=== PATIENT | female | born 1960 | race Caucasian/White ===

== ENCOUNTER 2024-09-21 06:46 | Outpatient (CLI) | payer OTHER, SELFPAY ==
--- NOTE | ~2024-09-21 | CT_ITS ---
CT Scan of the Chest without Contrast: Clinical Indication: Lung cancer screening, nicotine dependence Technique: Contiguous sections were acquired throughout the chest without intravenous contrast. Dose reduction technique was used on this scan by utilizing automated exposure control and iterative recon struction technique. The dose-length product (DLP) was 76.88 mGy-cm. Findings: There is no evidence of any significant mediastinal, hilar or axillary lymphadenopathy. The mediastin al soft tissues appear normal. There is no evidence of pleural or pericardial effusion. There is focal right apical scarring. Moderate emphysema present in the lungs. Images through the upper abdomen reveal no abnormalities. Impression: Lung RADS 2: Benign appearance. 12 month follow-up screening CT advised. Reviewed, dictated and finalized at location . DOWN CHECKER Impression: Lung RADS 2: Benign appearance. 12 month follow-up screening CT advised.
== END 2024-09-21 06:47 | disposition home or self-care (01) ==
PROVIDERS: PCP Physician Assistant Medical; Visit Provider Internal Medicine Critical Care Medicine
DX: Z12.2 Encounter for screening for malignant neoplasm of respiratory organs (principal); Z87.891 Personal history of nicotine dependence
CPT/HCPCS: 71271; 94060; 94618; 94726; 94729

== ENCOUNTER 2024-11-08 01:18 | Day surgery (SDC) | payer OTHER, SELFPAY ==
[2024-10-19 13:37] VITALS: BMI 27.1
[2024-11-08 06:57] VITALS: BP 111/69; PULSE 99; RESP 17; TEMP 36.4; O2SAT 98
[2024-11-08] MEDS: LACTATED RINGERS 1,000 ML 150 ML IV CONT (07:10)
[2024-11-08 07:11] LABS: Glucose Point of Care 143 mg/dl (65-105)
--- NOTE | 2024-11-08 07:30 | P.PNAN_ITS ---
Anes - Initial Pre Proc Eval Procedure: Operation Date: 11/08/24 08:00 Proposed Procedures p Esophagogastroduodenoscopy&Screen Colon - mEeka Chin MD Date/Time: 11/08/24 07:30 Surgeon: Emeka Chin MD Pre Op Diagnosis: screening colon Patient Data Age: 64 Gender: F Height: 1.63 m Weight: 71.7 kg Last Vital Signs Temp 36.4 C L 11/08/24 06:57 Pulse 99 11/08/24 06:57 Resp 17 11/08/24 06:57 BP 111/69 11/08/24 06:57 Pulse Ox 98 11/08/24 06:57 O2 Del Method Room Air 11/08/24 06:57 Allergies Allergy/AdvReac Type Severity Reaction Status Date / Time nirmatrelvir (From Paxlovid) Allergy Intermediate throat Verified 11/08/24 06:55 felt like it was swelling ritonavir (From Paxlovid) Allergy Intermediate throat Verified 11/08/24 06:55 felt like it was swelling sulfur dioxide Allergy Rash Verified 11/08/24 06:55 Home Medications ?Medication ?Instructions ?Recorded ?Confirmed ?Type albuterol sulfate 90 mcg/actuation 1 puff inhalation Q4H PRN 02/08/24 10/19/24 History aerosol inhaler (ProAir HFA) shortness of breath or wheezing buspirone 15 mg tablet 15 mg PO BID 02/08/24 10/19/24 History nystatin 100,000 unit/gram topical 1 applic topical DAILY PRN other 02/08/24 10/19/24 History ointment tiotropium bromide 1.25 2 puff inhalation BID 02/08/24 10/19/24 History mcg/actuation mist for inhalation (Spiriva Respimat) topiramate 50 mg tablet 50 mg PO BID #180 tabs 02/08/24 10/19/24 Rx triamcinolone acetonide 0.1 % 1 applic topical BID PRN other 02/08/24 10/19/24 History topical cream Lactobacillus rhamnosus-Bifidobac. 1 cap PO .QD #30 caps 05/18/24 10/19/24 Rx animalis 3 billion cell capsule ([employer] wheat dextrin 5 gram/7.4 gram oral See Rx Instructions PO .QD #248 05/18/24 10/19/24 Rx powder (Benefiber Healthy Shape) grams zolpidem 10 mg tablet 10 mg PO QHS PRN insomnia #30 tabs 05/31/24 10/19/24 Rx metformin 500 mg tablet,extended 1,000 mg (2 x 500 mg) PO BID #180 07/03/24 11/08/24 Rx release 24 hr tabs omeprazole 40 mg capsule,delayed 40 mg PO BID #180 caps 08/07/24 10/19/24 Rx release ondansetron 4 mg disintegrating 4 mg PO Q8H PRN nausea and 08/16/24 10/19/24 Rx tablet vomiting #10 tabs atorvastatin 20 mg tablet 20 mg PO QHS #90 tabs 10/05/24 10/19/24 Rx mirtazapine 30 mg tablet (Remeron) 30 mg PO DAILY #90 tabs 10/05/24 10/19/24 Rx paroxetine HCl 40 mg tablet (Paxil) 40 mg PO DAILY #90 tabs 10/08/24 10/19/24 Rx rizatriptan 10 mg tablet See Rx Instructions PO .COMPLEX #7 10/12/24 10/19/24 Rx tabs hydrocodone 10 mg-acetaminophen 1 tablet PO Q4H PRN pain #180 tabs 10/19/24 11/08/24 Rx 325 mg tablet lorazepam 1 mg tablet 1 mg PO BID PRN anxiety #60 tabs 10/19/24 11/08/24 Rx Laboratory Tests 11/08/24 07:03 POC Capillary Glucose 143 H mg/dl (65-105) Patient hx anesthesia problems: none Family hx anesthesia problems: none Results Review: All pre-operative results and documents have been reviewed as part of the pre- operative evaluation. [facility] Past Medical History Medical History History of Bennett's esophagus Migraine Muscle spasm of back Foot pain Screening for colon cancer Lumbar spondylosis Insomnia Osteoporosis Headache GERD (gastroesophageal reflux disease) Diabetes COPD (chronic obstructive pulmonary disease) Arthritis Anxiety Surgical History Surgical History H/O: hysterectomy (~1999) History of appendectomy (~1984) Family History Family History Father Skin cancer Lung cancer Diabetes mellitus Hypertension Heart disease Mother Heart disease Other Diabetes mellitus Social History Social History Social History: 08/16/24 very confident with medical forms Smoking packs per day: 1 Smoking cigarettes per day: 20.0 Smoking status: Current every day smoker Tobacco type: cigarettes Alcohol intake: never Substance use: never Substance use type: does not use Do You Feel Safe in your Home?: Yes Lack of Transportation: No Lack of Food: Never True Current Housing: I Have Housing Concerned About Future Housing: No Difficulty Paying Gas/Electric Bills: No Difficulty Paying for Meds: No Currently Unemployed: No Education: Decline to Answer Difficulty w/ Childcare or Family Care: No Living arrangements: with family Occupation/Education: retired Agree to blood products: Yes Anes - Eval Final PreProcedure Day of Procedure 11/08/24 07:30 Patient weight: overweight Heart: regular rate and rhythm Lungs: clear to auscultation Airway: Mallampati scale class II and other (dentures) Neurological: alert and oriented Last oral intake: >/= 8 hours ASA classification: III Emergent: no Anesthetic plan: proceed Anesthesia type and monitoring: general GIVS and standard monitoring Results Review: All pre-operative results and documents have been reviewed as part of the pre- operative evaluation. Informed Consent: The patient's anesthetic plan and its attendant risks and benefits were discussed with the patient/family/POA. Questions were solicited and answers provided to the satisfaction of the patient/family/POA.
--- NOTE | 2024-11-08 07:46 | P.HP_ITS ---
History of Present Illness History of Present Illness Consent: Risks, benefits, and alternatives have been discussed and questions answered. Patient agrees to proceed with procedure. Chief complaint: screening colon Narrative: Yolie Dutton is a 64 year old female with gerd on omeprazole, had egd and colonoscopy 5 years ago, h/o chronic diarrhea for years. Review of Systems Review of Systems: All systems reviewed & are unremarkable except as noted in HPI and below PMFSH Past Medical History Medical History History of Bennett's esophagus Migraine Muscle spasm of back Foot pain Screening for colon cancer Lumbar spondylosis Insomnia Osteoporosis Headache GERD (gastroesophageal reflux disease) Diabetes COPD (chronic obstructive pulmonary disease) Arthritis Anxiety Surgical History Surgical History H/O: hysterectomy (~1999) History of appendectomy (~1984) Family History Family History Father Skin cancer Lung cancer Diabetes mellitus Hypertension Heart disease Mother Heart disease Other Diabetes mellitus Social History Social History Social History: 08/16/24 very confident with medical forms Smoking packs per day: 1 Smoking cigarettes per day: 20.0 Smoking status: Current every day smoker Tobacco type: cigarettes Alcohol intake: never Substance use: never Substance use type: does not use Do You Feel Safe in your Home?: Yes Lack of Transportation: No Lack of Food: Never True Current Housing: I Have Housing Concerned About Future Housing: No Difficulty Paying Gas/Electric Bills: No Difficulty Paying for Meds: No Currently Unemployed: No Education: Decline to Answer Difficulty w/ Childcare or Family Care: No Living arrangements: with family Occupation/Education: retired Agree to blood products: Yes Meds Home Medications and Allergies Home Medications ?Medication ?Instructions ?Recorded ?Confirmed ?Type albuterol sulfate 90 mcg/actuation 1 puff inhalation Q4H PRN 02/08/24 10/19/24 History aerosol inhaler (ProAir HFA) shortness of breath or wheezing buspirone 15 mg tablet 15 mg PO BID 02/08/24 10/19/24 History nystatin 100,000 unit/gram topical 1 applic topical DAILY PRN other 02/08/24 10/19/24 History ointment tiotropium bromide 1.25 2 puff inhalation BID 02/08/24 10/19/24 History mcg/actuation mist for inhalation (Spiriva Respimat) topiramate 50 mg tablet 50 mg PO BID #180 tabs 02/08/24 10/19/24 Rx triamcinolone acetonide 0.1 % 1 applic topical BID PRN other 02/08/24 10/19/24 History topical cream Lactobacillus rhamnosus-Bifidobac. 1 cap PO .QD #30 caps 05/18/24 10/19/24 Rx animalis 3 billion cell capsule ([employer]) wheat dextrin 5 gram/7.4 gram oral See Rx Instructions PO .QD #248 05/18/24 10/19/24 Rx powder (Benefiber Healthy Shape) grams zolpidem 10 mg tablet 10 mg PO QHS PRN insomnia #30 tabs 05/31/24 10/19/24 Rx metformin 500 mg tablet,extended 1,000 mg (2 x 500 mg) PO BID #180 07/03/24 11/08/24 Rx release 24 hr tabs omeprazole 40 mg capsule,delayed 40 mg PO BID #180 caps 08/07/24 10/19/24 Rx release ondansetron 4 mg disintegrating 4 mg PO Q8H PRN nausea and 08/16/24 10/19/24 Rx tablet vomiting #10 tabs atorvastatin 20 mg tablet 20 mg PO QHS #90 tabs 10/05/24 10/19/24 Rx mirtazapine 30 mg tablet (Remeron) 30 mg PO DAILY #90 tabs 10/05/24 10/19/24 Rx paroxetine HCl 40 mg tablet (Paxil) 40 mg PO DAILY #90 tabs 10/08/24 10/19/24 Rx rizatriptan 10 mg tablet See Rx Instructions PO .COMPLEX #7 10/12/24 10/19/24 Rx tabs hydrocodone 10 mg-acetaminophen 1 tablet PO Q4H PRN pain #180 tabs 10/19/24 11/08/24 Rx 325 mg tablet lorazepam 1 mg tablet 1 mg PO BID PRN anxiety #60 tabs 10/19/24 11/08/24 Rx Allergies Allergy/AdvReac Type Severity Reaction Status Date / Time nirmatrelvir (From Johnny) Allergy Intermediate throat Verified 11/08/24 06:55 felt like it was swelling ritonavir (From Paxlovid) Allergy Intermediate throat Verified 11/08/24 06:55 felt like it was swelling sulfur dioxide Allergy Rash Verified 11/08/24 06:55 Vital Signs Vital Signs - 24 hr 11/08/24 06:57 Temperature 97.5 F L Pulse Rate 99 Respiratory Rate 17 Blood Pressure 111/69 Pulse Oximetry 98 Oxygen Delivery Room Air Exam Const: General: comfortable and no acute distress HENMT: Face/Nose/Sinus: Normal nares present Eyes: General: appearance normal, both eyes and all related structures Neck: Neck: no JVD Resp: Auscultation: clear to auscultation bilaterally Cardio: Rate: regular rate Rhythm: regular rhythm GI: Inspection: non-distended GI Palp: Yes Soft to palpation Skin: General skin exam: normal color Neuro: General: gait normal Speech: normal speech Extrem: General: normal to inspection Psych: Mental Status: mental status grossly normal Assessment and Plan Assessment and plan (1) GERD (gastroesophageal reflux disease): Code(s): K21.9 - Gastro-esophageal reflux disease without esophagitis Status: Acute Assessment and Plan: on ppi egd (2) Postprandial diarrhea: Code(s): K52.9 - Noninfective gastroenteritis and colitis, unspecified Status: Acute Assessment and Plan: colonoscopy (3) Screening for colon cancer: Code(s): Z12.11 - Encounter for screening for malignant neoplasm of colon Status: Acute
--- NOTE | 2024-11-08 08:01 | SUR.OPER ---
EGD end 0755 Colonoscopy start 08
[2024-11-08 08:16] VITALS: BP 110/74; PULSE 93; RESP 18; O2SAT 99
[2024-11-08 08:26] VITALS: BP 120/68; PULSE 84; RESP 22; O2SAT 99
[2024-11-08 08:36] VITALS: BP 130/76; PULSE 81; RESP 20; O2SAT 99
== END 2024-11-08 08:55 | disposition home or self-care (01) ==
PROVIDERS: PCP Physician Assistant Medical; Visit Provider Internal Medicine Gastroenterology
PROC: 0DJ08ZZ Inspection of Upper Intestinal Tract, Via Natural or Artificial Opening Endoscopic (ICD-10-PCS; CPT 45378; principal; 2024-11-08 08:00)
DX: Z12.11 Encounter for screening for malignant neoplasm of colon (principal); K57.30 Diverticulosis of large intestine without perforation or abscess without bleeding; K21.00 Gastro-esophageal reflux disease with esophagitis, without bleeding; K29.80 Duodenitis without bleeding; K52.9 Noninfective gastroenteritis and colitis, unspecified; E11.9 Type 2 diabetes mellitus without complications; M43.06 Spondylolysis, lumbar region; G47.00 Insomnia, unspecified; M81.0 Age-related osteoporosis without current pathological fracture; J44.9 Chronic obstructive pulmonary disease, unspecified; F41.9 Anxiety disorder, unspecified; M19.90 Unspecified osteoarthritis, unspecified site; F17.210 Nicotine dependence, cigarettes, uncomplicated; Z79.51 Long term (current) use of inhaled steroids; Z79.84 Long term (current) use of oral hypoglycemic drugs; Z79.891 Long term (current) use of opiate analgesic; Z98.890 Other specified postprocedural states; Z87.19 Personal history of other diseases of the digestive system; Z84.0 Family history of diseases of the skin and subcutaneous tissue; Z80.1 Family history of malignant neoplasm of trachea, bronchus and lung; Z82.49 Family history of ischemic heart disease and other diseases of the circulatory system
CPT/HCPCS: 43239; G0105; 82948; 88305; J2003; J2704; J7120

== ENCOUNTER 2025-06-04 12:30 | Outpatient (RCR) | payer OTHER, SELFPAY ==
--- NOTE | 2025-04-25 09:54 | OPREHPOC ---
Outpatient Therapy Plan of Care This is a Multidisciplinary Plan of Care that may contain components documented by all disciplines (PT, OT, and ST.) PT Problem 1 PT Problem #1 Knowledge Deficit PT Goal 1 Goal / Goal Update Pt will be independent in HEP Pt will verbalize understanding of diagnosis and prognosis Target Visit 10 PT Problem 2 PT Problem #2 Pain PT Goal 1 Goal / Goal Update Pt will report lowest pain rating at 0/10 to show improvement in overall discomfort Target Visit 10 PT Goal 2 Goal / Goal Update Pt will report greatest pain level at 6/10 or less to improve ADLs and activities Target Visit 20 PT Problem 3 PT Problem #3 Impaired Strength PT Goal 1 Goal / Goal Update Pt will demonstrate 3/5 strength BLEs for improved lumbopelvic stability Target Visit 10 PT Goal 2 Goal / Goal Update Pt will demonstrate 3/5 strength BLEs for improved lumbopelvic stability Target Visit 20 PT Problem 4 PT Problem #4 Impaired Range of Motion PT Goal 1 Goal / Goal Update Pt will demonstrate lumbar rotation 20 degrees R/L each Target Visit 10 PT Goal 2 Goal / Goal Update Pt will demonstrate improved thoracic mobility to offload musculature and reduce pain Target Visit 20
--- NOTE | 2025-04-25 09:56 | PTOPEVAL1 ---
Assessment and note entered by Cheri Bird, PT Evaluation Information Assessment Status Evaluation Diagnosis low back pain unspec ICD-10 Condition Codes (PT) Pain in Thoracic Spine M54.6,Pain in low back M54. 50,Weakness R53.1 Other ICD-10 Condition Codes ( scoliosis, abnormal postures PT) Onset chronic Subjective Information Pt reports she has done therapy in the past and it did absolutely nothing. States she knows this is not going to help either and just needs to complete therapy for the MRI Has been having chronic back pain ~15 years. Taking vicoden for this for the last. Has been on muscle relaxers and other medications for quite some time at least 5 years. Reports takes 4-6 a day. States sometimes has to take 2 at a time. Reports there are days though only has to take one at a time. States once she does anything is shot for the rest of the day, something as little as holding 4 lb chihuahua. Thinks had an MRI years ago. Has not been referred to pain management. Has not tried back bracing. will use heavy duty massager and this feels good. Reports she can't hardly do anything rates about 5 minutes of activity before sitting. Cannot stand at a sink to do dishes, tries to cook and by the time I'm just screaming it hurts so bad is in such a oliver to sit down. Reports no pain or tingling down the legs Went shopping yesterday about 20 minutes using a push cart. Would go to the cart and lean on it. went first clothes shopping then went to grocery store but was unable to finish shopping. Only thing that really relieves pain is laying down. Reports no traumatic incident to start back pain. 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 States would get to shivering, and be in tears about 10 years ago. Reported Pain Level Pain Score 2: Self Report Assessment PT Clinical Summary Pt presents with complaints of chronic back pain both in the lumbar and thoracic spine. She has attended therapy in the past without success, and initially verbalizes her opinion that she knows therapy will not work, that she is just performing therapy for MRI requirements. After evaluation, educated patient on therapy findings, as well as interventions intended and goals related to reducing pain and improving function though not likely to resolve pain 100%. Pt appears more open to participating fully in therapy while meeting requirements for insurance. Evaluation shows severe thoracic kyphosis with decreased thoracic mobility, decreased lumbar lordosis with decreased ROM, possible pelvic upslip versus leg length discrepancy, multiple areas of increased muscle tone and tenderness, and severely decreased strength in the lumbopelvic stabilizer musculature . Pt will greatly benefit from physical therapy to educate her in functional activities, promote independent thinking for modifications of activies for reduced pain, manual therapy to reduce muscle tonicity and pain, and strengthening among other interventions to reduce pain and improve overall function. Plan of Care Interventions Electrical Stimulation,Hot Pack/Cold Pack,Manual Lymph Drainage,Manual Therapy,Mechanical Traction, Neuro Re-education,Patient/Caregiver Education, Therapeutic Activities,Therapeutic Exercise,Self- Care/Home Management,Ultrasound,Other Other Interventions Bracing, taping, TENS unit PT Services Indicated Yes Treatment Frequency and 1-2x weekly x 20 visits Duration These treatments will address the objective and functional deficits as defined above. The patient will be advanced safely and appropriately in order for the patient to progress towards his/her prior level of function. Additional exercises will be introduced and as well as a comprehensive home exercise program upon discharge, if needed, ?to ensure carryover of functional gains achieved in the clinic. This treatment plan has been reviewed and agreement upon by the patient.
--- NOTE | 2025-05-14 16:54 | PCPTNOTE ---
Pt cancelled today's physical therapy appointment. Pt left VM with no reason for cancelling.
--- NOTE | 2025-05-21 13:25 | PCPTNOTE ---
Pt called to cancel her appointment as she has to take her dog to the vet.
--- NOTE | 2025-05-29 17:14 | PTOPPROG ---
Assessment and note entered by Cheri Bird, PT Evaluation Information Assessment Status Progress Diagnosis low back pain unspec ICD-10 Condition Codes (PT) Pain in Thoracic Spine M54.6,Pain in low back M54. 50,Weakness R53.1 Other ICD-10 Condition Codes ( scoliosis, abnormal postures PT) Onset chronic Subjective Information Pt was here a week ago and had to cancel last appt due to taking the dog to the vet. Pt reports tried to do the most of her exercises. Got a little sore doing them, doesn't know if was doing too much and to many. Is also assisting her due to his hip pain. Pt reports is hurting more since starting therapy. States is feeling muscle cramps or sierra horses in her muscles usually when she is doing the exercises or moving later will feel it. Reports her neck muscles are currently bothering her. States she knows it's from the exercise she is doing. Reports is still difficult standing and making food in the kitchen. States took lots of sitting breaks while cooking zucchini bread and pie for an event States had to sit every 10 minutes. Reports was able to get the shrinking hose advised by therapist. Hasn't used it yet. Pt reports not feeling much improvement overall Assessment PT Clinical Summary Pt has attended therapy 7 of 10 scheduled therapy sessions thus far. Increased time through sessions spent on educating patient on using other resources available to offload her musculature with her activities such as improved gardening equipment and positioning when preparing large meals. She continues to show a kyphotic posture though her pelvis appears aligned today which is improved. She demonstrates less tenderness with palpation, improved strength in the gluteal area, reduced pain reports in highest and lowest pain ratings, and reduced perceived disability with the Oswestry outcome measures. She reports her exercises cause increased pain though this appears to be muscle fatigue in nature based on discussion. Her pain perception may be skewed as is common with chronic pain processing. Pt also voices additional factors outside of therapy in the pscho-social realm likely effecting perception of progress. Pt will benefit from continued therapy to continue education and problem solving functional activities to reduce her pain, continue progressing strength and endurance of postural muscles, improve mobility and ROM sherrell of the thoracic spine, and improve overall functional independence and quality of life. Plan of Care Interventions Electrical Stimulation,Hot Pack/Cold Pack,Manual Lymph Drainage,Manual Therapy,Mechanical Traction, Neuro Re-education,Patient/Caregiver Education, Therapeutic Activities,Therapeutic Exercise,Self- Care/Home Management,Ultrasound,Other Other Interventions Bracing, taping, TENS unit PT Services Indicated Yes Treatment Frequency and 1x weekly x 10 visits due to financial burden of Duration 2x weekly visits These treatments will address the objective and functional deficits as defined above. The patient will be advanced safely and appropriately in order for the patient to progress towards his/her prior level of function. Additional exercises will be introduced and as well as a comprehensive home exercise program upon discharge, if needed, ?to ensure carryover of functional gains achieved in the clinic. This treatment plan has been reviewed and agreement upon by the patient.
--- NOTE | 2025-06-11 15:23 | PCPTNOTE ---
Pt called front end web designer to cancel her physical therapy appointment today due to having plumbing issues and her sink flooding.
--- NOTE | 2025-06-17 09:59 | PTOPDC ---
Assessment and note entered by Cheri Bird, PT Evaluation Information Assessment Status Discharge - Pt Not Present Diagnosis low back pain unspec ICD-10 Condition Codes (PT) Pain in Thoracic Spine M54.6,Pain in low back M54. 50,Weakness R53.1 Other ICD-10 Condition Codes ( scoliosis, abnormal postures PT) Onset chronic Assessment PT Clinical Summary Pt attended 7 of her first 10 visits, and demonstrated improvement in her pain reports and with her subjective Oswestry functional outcome measure. At that time she asked to reduce her frequency to 1x weekly due to financial concerns with her co-pay. We decreased frequency and increased her length of treatment session to balance this as well as encouraged home exercises consistently due to inability to attend. She only attended one session after reeval for a total of 8 visits. She called and requested discharge due to being to busy at the moment to attend therapy. Thus patient is being discharged per request. She will be able to return to therapy at any point in time with a new prescription from her PCP. Plan of Care PT Services Indicated No
== END 2025-06-17 10:08 | disposition home or self-care (01) ==
LOC: ANHHIPT 12:30
PROVIDERS: PCP Physician Assistant Medical; Visit Provider Physician Assistant Medical
DX: M25.531 Pain in right wrist (principal); M25.532 Pain in left wrist; M54.50 Low back pain, unspecified
CPT/HCPCS: 97014; 97110; 97140; 97162; 97530; 97750; G0283

== ENCOUNTER 2025-08-09 05:19 | Outpatient (CLI) | payer OTHER, SELFPAY ==
--- NOTE | 2025-07-24 11:50 | SUR.PREOP ---
Spoke with patient in regards to givens capsule endoscopy. Will send instructions by email. Patient does not have any questions at this time.
--- NOTE | 2025-08-09 07:05 | SUR.OPER ---
Patient brought to GI Lab. Instructions for patient undergoing Capsule Endoscopy reviewed with patient. Consent form signed. Sensor array applied to patient's abdomen and connected to recorded. Patient swallowed capsule with 16ozs of water infused with Simethicone. Patient instructed they may have clear liquids at 0830 this AM and eat or drink at 1030 this AM. Patient instructed to return to GI Lab at 1500 this afternoon for removal of recording device and to call [phone] or to return to the hospital if any nausea and vomiting or abdominal pain is experienced.
--- NOTE | 2025-08-09 14:58 | SUR.OPER ---
Patient returned to the GI Lab at 1455 for recorder box removal. Patient voiced no complaints. States they have understanding of instructions. Patient left ambulatory.
== END 2025-08-09 05:20 | disposition home or self-care (01) ==
PROVIDERS: PCP Physician Assistant Medical; Referring Provider Nurse Practitioner; Visit Provider Internal Medicine Gastroenterology
PROC: (CPT 91110; principal; 2025-08-09 07:00)
DX: D50.9 Iron deficiency anemia, unspecified (principal)
CPT/HCPCS: 91110

== ENCOUNTER 2025-09-23 09:29 | Outpatient (CLI) | payer OTHER, SELFPAY ==
--- NOTE | ~2025-09-23 | CT_ITS ---
EXAMINATION:CT lung screening DATE: 09/23/2025 09:55 INDICATION: 50 pack year history of smoking. TECHNIQUE: Computed tomography (CT) of the chest was performed without intravenous contrast. Automated exposure control and iterative reconstruction technique were employed. The dose-length product (DLP) was 90.96 mGy-cm. COMPARISON: CT lung cancer screening study dated 09/21/2024. FINDINGS: Significant waters acinar emphysematous changes of upper and mid lung zones. No solid pulmonary mass. Stable calcified lymph nodes in the mediastinum. No evidence of effusion. Significant coronary artery calcification of left anterior descending and right coronary arteries. IMPRESSION: 1. . Emphysematous changes of upper and mid lung zones. Stable calcified mediastinal lymph node. Continue annual low-dose screening. Lung RADS category 2 2. Multivessel coronary artery calcifications as mentioned above. Reviewed, dictated and finalized at location T. ESS ENGINEER IMPRESSION: 1. . Emphysematous changes of upper and mid lung zones. Stable calcified medias tinal lymph node. Continue annual low-dose screening. Lung RADS category 2 2. Multivessel coronary artery calcifications as mentioned above.
--- OUTSIDE RECORDS SUMMARY | 2025-09-23 10:38 | XMS_ITS | Clinical Summary ---
Author Organization [facility] Address [facility] [place] [address] Care Team Providers Care Heat Seal Operator Name Role Phone Mallory Sepulveda Primary Care Provider [phone] Allergies Active Allergy Reactions Criticality Noted Date Comments Latex Hives High 08/17/2023 Sulfa Antibiotics Hives Medium 08/17/2023 Medications metFORMIN ER, MOD, (GLUMETZA) 500 MG TABLET SR 24 HR 24 hr tablet Take 1 tablet (500 mg total) by mouth nightly at bedtime. Active atorvastatin (LIPITOR) 20 MG tablet Take 1 tablet (20 mg total) by mouth nightly at bedtime. Active busPIRone (BUSPAR) 15 MG tablet Take 1 tablet (15 mg total) by mouth 2 (two) times daily. Active PARoxetine (PAXIL) 40 MG tablet Take 1 tablet (40 mg total) by mouth every morning. Active omeprazole (PRILOSEC) 40 MG capsule Take 1 capsule (40 mg total) by mouth daily. Active mirtazapine (REMERON) 45 MG tablet Take 1 tablet (45 mg total) by mouth daily. Active Encounters Date Type Department Care Team Description 07/30/2025 12:49 PM CDT - 07/30/2025 11:59 PM CDT Hospital Encounter [facility] [address] [place] [address] Mallory Sepulveda PA Discharge Disposition: Home or Self Care (Routine Discharge) 07/30/2025 Travel 07/26/2025 1:30 PM CDT - 07/26/2025 11:59 PM CDT [place] [address] [place] [address] June Rogel APNP Discharge Disposition: Home or Self Care (Routine Discharge) 07/26/2025 Travel 06/24/2025 7:30 AM CDT - 06/24/2025 8:04 AM CDT Surgery [facility] [address] [place] [address] Charlie Esteves MD CATARACT REMOVAL WITH IOL IMPLANT 06/24/2025 7:30 AM CDT Anesthesia Event [facility] [address] [place] [address] Lorna Verde CRNA Rani, Swaroop, MD 06/24/2025 6:31 AM CDT - 06/24/2025 8:04 AM CDT Hospital Encounter [facility] [address] [place] [address] Charlie Esteves MD Discharge Disposition: Home or Self Care (Routine Discharge) 06/24/2025 Travel from Last 3 Months Family History Medical History Relation Comments Breast Cancer Sister HALF SISTER Relation Status Comments Sister Social History Tobacco Use Types Packs/Day Years Used Date Smoking Tobacco: Every Day Cigarettes Smokeless Tobacco: Never Tobacco Cessation:Ready to Q uit: Not Asked; Counseling Given: Not Answered Alcohol Use Standard Drinks/Week Comments Never 0 (1 standard drink = 0.6 oz pur e alcohol) Comments No Sex and Gender Information Value Date Recorded Sex Assigned at Not on file Legal Sex Female 8:04 PM CDT Gender Identity Not on file Sexual Orientation Not on file Last Filed Vital Signs Vital Sign Reading Time Taken Comments Blood Pressure 125/60 06/24/2025 7:53 AM CDT Pulse 82 06/24/2025 7:53 AM CDT Temperature 36.8 C (98.2 F) 06/24/2025 6:43 AM CDT Respiratory Rate 16 06/24/2025 7:53 AM CDT Oxygen Saturation 97% 06/24/2025 7:53 AM CDT Inhaled Oxygen Concentration - - Weight 70.3 kg (155 lb) 06/24/2025 6:43 AM CDT Height 162.6 cm (5' 4) 06/24/2025 6:43 AM CDT Body Mass Index 26.61 06/24/2025 6:43 AM CDT Plan of Treatment Health Maintenance Due Date Last Done Comments Colorectal Cancer Screening Colonoscopy (10 Years) 1960 Zoster Vaccines (1 of 2) 2008 Annual Medicare Wellness Visit 2023 Dexa Scan (General) 2023 COVID-19 Vaccine ( - season) 2025 03/20/2022, 08/19/2021, 01/19/2021, Additional history exists Influenza Adult (#1) 2025 06/27/2023, 09/03/2022, 07/07/2021, Additional history exists DTaP, Tdap and Td Vaccines (2 - Td or Tdap) 04/22/2026 04/22/2016 Mammogram Screening 07/30/2027 07/30/2025, 06/09/2021, 09/05/2019 RSV Immunization or 60+ Years (1 - 1-dose 75+ series) 2033 Colorectal Cancer Screening FIT/FOBT (1 Year) Discontinued 07/04/2019 Hepatitis C Completed 08/13/2019 Pneumococcal Vaccine: 50+ Years Completed 06/27/2023, 04/22/2016 Hepatitis A Vaccines Aged Out No long er eligible based on patient's age to complete this topic Meningococcal B Vaccine Aged Out No l onger eligible based on patient's age to complete this topic Meningococcal Vaccine Aged Out No cindy morgan eligible based on patient's age to complete this topic RSV Immunizations Under 20 Months Aged Out No longer eligible based on patient's age to complete this topic Medical Devices Implanted Type Area Service Delivery Analyst Device Identifier Shelf Expiration Date Model / Serial / Lot Tecnis 1-Piece Iol With Tecnis Simplicity Delivery System Implanted:Qty: 1 on 06/24/2025 by Charlie Esteves MD at [facility] Lens Left: Eye [employer] [id number] 03/29/2028 / [id number] / Procedures Procedure Name Priority Date/Time Associated Diagnosis Comments MG SCREENING W LUIS YONAS DIGI Routine 07/30/2025 1:46 PM CDT Encounter for screening mammogram for malignant neoplasm of breast CT ABD+PEL W CON Routine 07/26/2025 2:21 PM CDT Iron deficiency anemia, unspecified Noninfective gastroenteritis and colitis, unspecified CREATININE W/GFR Routine 07/26/2025 1:53 PM CDT REMV CATARACT EXTRACAP,INSERT LENS 06/24/2025 7:29 AM CDT H25.12 Case Notes C POCT GLUCOSE - DOCKED DEVICE Routine 06/24/2025 7:00 AM CDT HEPATITIS C ANTIBODY Routine 08/13/2019 10:56 AM CDT Abdominal pain, generalized Diarrhea of presumed infectious origin OCCULT BLOOD, FECES Routine 07/04/2019 9:48 AM CDT Diarrhea of presumed infectious origin Loss of weight from Last 3 Months or Most Recently Relevant to Health Maintenance Results * MG SCREENING W LUIS YONAS DIGI (07/30/2025 1:46 PM CDT) Anatomical Region Laterality Modality Breast Bilateral Mammography 08/01/2025 5:20 PM CDT Impressions 08/01/2025 5:22 PM CDT ===== IMPRESSION: ===== 1. Stable mammographic appearance with no new findings to suggest malignancy in either breast. Assessment: ACR BI-RADS 1 - NEGATIVE Recommendation: 1:Routine Screening Bilateral Comments: Ordered By: MALLORY SEPULVEDA Interpreted By: Gill Pham, 08/01/2025 5:20 PM Narrative 08/01/2025 5:22 PM CDT [facility] [address] [place] [address] EXAMINATION: Digital bilateral screening mammogram with 3-D tomosynthesis EXAM DATE/TIME: 07/30/2025 12:56 PM REASON FOR EXAM: Encounter for screening mammogram for malignant neoplasm of breast Breast carcinoma in half sister at age 40 COMPARISON: 09/05/2019. 06/09/2021 Technique: Digital screening mammography of both breasts was performed in addition to 3-D Tomosynthesis technique. This study was read with the assistance of a computer-aided detection system. Tissue density: There are scattered areas of fibroglandular density. Findings: There is no new focal asymmetry, dominant mass lesion, area of skin thickening, or cluster of suspicious appearing calcifications in either breast to suggest malignancy. us Mallory YBARRA MAMMO Final Result * CT ABD+PEL W CON (07/26/2025 2:21 PM CDT) Anatomical Region Laterality Modality Abdomen Computed Tomogra phy 07/29/2025 7:45 AM CDT Impressions 07/29/2025 7:50 AM CDT Impression: Diverticulosis of the sigmoid colon without evidence for diverticulitis. Referred By: JUNE ROGEL Interpreted By: Emeterio Naranjo MD, 07/29/2025 7:45 AM Narrative 07/29/2025 7:[place] [address] Examination: CT ABD+PEL W CON Exam time: 07/26/2025 1:38 PM Indication: Iron deficiency anemia. Blood in the stool for one month. Comparison:CT abdomen and pelvis 07/12/2007 Technique: IV contrast: 80 mL Isovue 370. Right antecubital fossa Oral contrast: None Technical comments: Standard technique. Dose reduction: This CT exam was performed using one or more of the following dose reduction techniques: Automated exposure control, adjustment of the mA and/or kV according to patient size, and/or use of iterative reconstruction technique. Findings: There is mild dependent atelectasis. The liver, gallbladder, spleen, pancreas, adrenal glands, and kidneys are unremarkable. There is no ureteral calculus. There is no calculus in the urinary bladder. There is atherosclerosis of the abdominal aorta without aneurysm. There is diverticulosis of the sigmoid colon without evidence for diverticulitis. No bowel obstruction or free intraperitoneal air. Hysterectomy. There is no lymphadenopathy. No acute osseous abnormality. Procedure Note Emeterio Naranjo MD - 07/29/2025 [facility] [address] [place] [address] Examination: CT ABD+PEL W CON Exam time: 07/26/2025 1:38 PM Indication: Iron deficiency anemia. Blood in the stool for one month. Comparison:CT abdomen and pelvis 07/12/2007 Technique: IV contrast: 80 mL Isovue 370. Right antecubital fossa Oral contrast: None Technical comments: Standard technique. Dose reduction: This CT exam was performed using one or more of thefollowing dose reduction techniques: Automated exposure control,adjustment of the mA and/or kV according to patient size, and/or use ofiterative reconstruction technique. Findings: There is mild dependent atelectasis. The liver, gallbladder,spleen, pancreas, adrenal glands, and kidneys are unremarkable. There isno ureteral calculus. There is no calculus in the urinary bladder. Thereis atherosclerosis of the abdominal aorta without aneurysm. There isdiverticulosis of the sigmoid colon without evidence for diverticulitis.No bowel obstruction or free intraperitoneal air. Hysterectomy. There isno lymphadenopathy. No acute osseous abnormality. Impression: Diverticulosis of the sigmoid colon without evidence fordiverticulitis. Referred By: JUNE ROGEL Interpreted By: Emeterio Naranjo MD, 07/29/2025 7:45 AM us June Rogel AP CT Final Result * (ABNORMAL) CREATININE W/GFR (07/26/2025 1:53 PM CDT) CREATININE WHOLE BLOOD 0.8 0.6 - 1.3 mg/dL 07/26/2025 2:05 PM CDT [facility] GFR ESTIMATE 81(L) >90 ml/min/1.7 3 m2 07/26/2025 2:05 PM CDT [facility] 07/26/2025 1:53 PM CDT June NICKERSON POINT OF CARE TEST ORDERABLE S Final Result Performing Organization Address City/[facility]/ZIP Co de Phone Number [facility] [address] [place] [address], [place] [phone] * (ABNORMAL) POCT glucose (06/24/2025 7:00 AM CDT) [facility] GLUCOSE POC 149(H) 70 - 110 mg/dL 06/24/2025 7:03 AM CDT [facility] 06/24/2025 7:00 AM CDT Charlie Esteves MD POCT ORDERABLES - DEVICE Danuta l Result Performing Organization Address [facility] Co de Phone Number [facility] [address] [place] [address], [place] [phone] * HEPATITIS C ANTIBODY (08/13/2019 10:56 AM CDT) [facility] HEPATITIS C AB NON-REACTI VE NON-REACTI VE 08/14/2019 4:54 AM CDT [facility] 08/13/2019 10:5 6 AM CDT Hira Tello MD LABORATORY Final Result Performing Organization Address City/[facility]/ZIP Co de Phone Number [facility] [address] [place] [address], [place] [phone] * OCCULT BLOOD, FECES (07/04/2019 9:48 AM CDT) Pathologist [facility] OCCULT BLOOD FECAL NEGATIVE NEGATIVE 07/04/2019 10:13 AM CDT [facility] STOOL SPECIMEN / Unknown 07/04/2019 9:48 AM CDT Hira Tello MD BODY FLUIDS AND STOOLS ORDERABL ES Final Result [facility] [address] [place] [address], from Last 3 Months or Most Recently Relevant to Health Maintenance Insurance [employer] Care Teams Heat Seal Operator Relationship Specialty Start Date End Date Mallory Sepulveda PA [address] [place] [address] PCP - General PHYSICIAN AGITATOR OPERATOR 06/07/25
--- OUTSIDE RECORDS SUMMARY | 2025-09-23 10:38 | XMS_ITS | Clinical Summary ---
Author Organization [facility] Address [address] [place] [id number] Care Team Providers Care Naphthalene Still Operator Name Role Phone Ramin Morgan MD Primary Care Provider [phone] Allergies Active Allergy Reactions Criticality Noted Date Comments Adhesive Tape-Silicones Hives High 08/17/2023 Sulfa (Sulfonamide Antibiotics) Hives Medium 07/31 Medications atorvastatin (LIPITOR) 20 mg tablet Take 1 tablet (20 mg total) by mouth daily Active busPIRone (BUSPAR) 15 mg tablet Take 1 tablet (15 mg total) by mouth 2 (two) times a day Active econazole 1 % cream APPLY CREAM TOPICALLY TO AFFECTED AREA AND SURROUNDING AREA TWICE DAILY 05/27/20 23 Active LORazepam (ATIVAN) 1 mg tablet Take 1 tablet (1 mg total) by mouth 07/22/20 23 Active metFORMIN (GLUMETZA) 500 mg 24 hr tablet Take 1 tablet (500 mg total) by mouth 2 times daily Active metFORMIN (GLUCOPHAGE) 1,000 mg tablet 08/09/20 23 Active mirtazapine (REMERON) 45 mg tablet Take 1 tablet (45 mg total) by mouth nightly at bedtime. Active nirmatrelvir 300 mg-ritonavir 100 mg (Paxlovid) tablets,dose pack tablets in a dose pack Take TWO nirmatrelvir 150 mg tablet(s) along with ONE ritonavir 100 mg tablet, with all three tablets taken together, twice daily for 5 days. May take with or without food. Swallow tablets whole. Do not chew, break or crush.. 02/04/20 Active nystatin-triamcino lone cream 06/28/20 Active omeprazole (PriLOSEC) 40 mg capsule Take 1 capsule (40 mg total) by mouth 2 (two) times a day Active PARoxetine (PAXIL) 40 mg tablet Take 1 tablet (40 mg total) by mouth daily Active rizatriptan CHARGE MANAGER (MAXALT-CHARGE MANAGER) 10 mg disintegrating tablet DISSOLVE ONE TABLET IN MOUTH AT ONSET OF MIGRAINE. IF SYMPTOMS PERSIST, A SECOND DOSE MAY BE TAKEN IN 2 HOURS. 07/15/20 Active Spiriva Respimat 2.5 mcg/actuation inhaler 08/16/20 Active topiramate (TOPAMAX) 100 mg tablet 08/09/20 Active clindamycin (CLEOCIN) 300 mg capsule Take 1 capsule (300 mg total) by mouth 3 (three) times a day 21 capsule 08/17/20 Active Additional Information Patient not taking.Reported on 08/31/2023 Active Problems No known active problems Family History Medical History Relation Name Comments Breast cancer Neg Hx Ovarian cancer Neg Hx Uterine cancer Neg Hx Social History Tobacco Use Types Packs/Day Years Used Date Smoking Tobacco: Never Assessed Comments Unknown Sex and Gender Information Value Date Recorded Sex Assigned at Not on file Legal Sex Female 5:29 PM CIGAR BANDER HAND Gender Identity Not on file Sexual Orientation Not on file Obstetrics History Para Term AB IAB SAB Ectopic Multiple Livin g Live Births 3 3 3 3 Date Outcome GA Total Labor Labor/2nd/3rd Weight Sex Type Anes PTL Esthela A1 A5 Name Clin Term Term Term Last Filed Vital Signs Vital Sign Reading Time Taken Comments Blood Pressure 120/60 08/31/2023 9:19 AM CDT Pulse - - Temperature - - Respiratory Rate - - Oxygen Saturation - - Inhaled Oxygen Concentration - - Weight 71.2 kg (157 lb) 08/31/2023 9:19 AM CDT Height - - Body Mass Index - - Plan of Treatment Health Maintenance Due Date Last Done Comments Breast Cancer Screening-Mammogram 1960 Colon Cancer Screening-Colonoscopy 1958 Depression Screening 1958 Fall Risk Assessment 1960 Hepatitis C Screening 1960 Osteoporosis Screening-Bone Density Scan 1958 Hepatitis B Screening 1976 Zoster Vaccine (1 of 2) 2008 Pneumococcal vaccine 65+ (2 of 2 - PCV) 04/22/2017 04/22/2016 Well Visit 65+ 2023 Covid-19 Vaccine (5 - 2024-2 6 season) 2025 03/20/2022, 08/19/2021, 01/19/2021, Additional history exists Influenza Vaccine (#1) 2025 , 07/07/2021, 07/30/2020, Additional history exists DTaP/Tdap/Td Vaccine (2 - Td or Tdap) 04/22/2026 04/22/2016 Insurance Care Teams Naphthalene Still Operator Relationship Specialty Start Date End Date Ramin Morgan MD [address] [place] [address] PCP - General Family Medicine 08/16/23
--- OUTSIDE RECORDS SUMMARY | 2025-09-23 10:38 | XMS_ITS | Encounter Summary ---
Author Organization [facility] Address [facility] [place] [address] Care Team Providers Care Electrician Helper Name Role Phone Curtis Sánchez MD Primary Care Provider [phone] Savannah Sepulveda Primary Care Provider Encounter Details Date Type Department Care Team (Late Contact Info) Description 11/06/2017 Abstract [facility] CONVERSION [address] [place] [address] , Generic Conversion, Social History Tobacco Use Types Packs/Day Years Used Date Smoking Tobacco: Never Assessed Comments Unknown Sex and Gender Information Value Date Recorded Sex Assigned at Not on file Legal Sex Female 8:04 PM CDT Gender Identity Not on file Sexual Orientation Not on file documented as of this encounter Plan of Treatment Not on file documented as of this encounter Visit Diagnoses Not on filedocumented in this encounter Additional Health Concerns Infection Onset Date Last Indicated Resolved Time COVID-19 Rule Out 02/03/2023 02/03/2023 02/03/2023 5:37 PM CDT COVID-19 Confirmed 02/03/2023 02/03/2023 12:32 AM CDT documented as of this encounter Care Teams Electrician Helper Relationship Specialty Start Date End Date Curtis Sánchez MD PCP - General 06/19/13 06/06/25 Savannah Sepulveda PA [address] [place] [id number] PCP - General PHYSICIAN PILOT SUBMERSIBLE 06/07/25 documented as of this encounter
== END 2025-09-23 09:30 | disposition home or self-care (01) ==
PROVIDERS: PCP Physician Assistant Medical; Visit Provider Internal Medicine Critical Care Medicine
DX: Z12.2 Encounter for screening for malignant neoplasm of respiratory organs (principal); Z87.891 Personal history of nicotine dependence; R91.8 Other nonspecific abnormal finding of lung field
CPT/HCPCS: 71271